=== PATIENT | male | born 1980 | race Caucasian/White ===

== ENCOUNTER 2024-01-16 06:55 | Day surgery (SDC) | payer OTHER, SELFPAY ==
--- NOTE | 2024-01-15 20:04 | HPE_ITS ---
Assessment and Plan Assessment and plan (1) Bleeding per rectum: Status: Acute Assessment and plan: Darryl and i reviewed the plan for an EGD and colonoscopy today. He had the oppurtunity to ask any new questions. Consents are up to date and we can proceed as planned. History of Present Illness History of Present Illness Chief Complaint: Bright red blood per rectum Narrative: He is 43 years old, he is referred here for colonoscopy because of bleeding per rectum. He thinks his symptoms for started about 2 years ago. He cannot recall any specific inciting factor. He tells me his had a longstanding of upper GI complaints, including a hiatal hernia and some gastritis. Bleeding 2 years ago stopped on its own without any particular intervention, and he had only 1 primary treatment in between. Most recently, in August of this year he began noticing blood on the toilet paper. This was occasionally associated with some bowel movements. He never has spontaneous bleeding on its own. He describes the color of the blood as on occasion bright red, but more often times maroon, or may be darker. He has never had any abdominal surgeries. Past medical history is most significant for gastroesophageal reflux disease or gastritis, which are treated with famotidine as well as omeprazole. He takes this every day. He denies any family history of colon or rectal cancers. He thinks his father may have had bladder and/or kidney cancer, and perhaps stomach cancer. PFSH All Active Problems Bleeding per rectum (Acute) Medical History Hiatal hernia GERD (gastroesophageal reflux disease) Psychophysiological insomnia Onychomycosis Panic attacks PTSD (post-traumatic stress disorder) Mood disorder Depression with anxiety Social History Smoking/Tobacco Use Status: Former Tobacco Use Smoking risk assessment performed?: Yes Alcohol Intake: former Substance use type: former substance user Housing: other Additional Social history: [facility] Meds Allergies and Home Medications Allergies Allergy/AdvReac Type Severity Reaction Status Date / Time ammonia Allergy Unknown Unknown Uncoded 01/16/24 07:02 eggplant Allergy Unknown unknown Uncoded 01/16/24 07:02 Home Medications ?Medication ?Instructions ?Recorded ?Confirmed ?Type acetaminophen 500 mg tablet 500 mg PO Q6H PRN 10/10/23 01/14/24 History buspirone 5 mg tablet 10 mg PO BID 10/10/23 01/14/24 History duloxetine 30 mg capsule,delayed 30 mg PO BID 10/10/23 01/14/24 History release famotidine 20 mg tablet 20 mg PO BID 10/10/23 01/14/24 History melatonin 3 mg tablet 3 mg PO HS PRN 10/10/23 01/14/24 History omeprazole 40 mg capsule,delayed 40 mg PO DAILY 10/10/23 01/14/24 History release quetiapine 50 mg tablet 50 mg PO DAILY 10/10/23 01/14/24 History diclofenac sodium 1 % topical gel 2 g topical BID 01/14/24 01/14/24 History ibuprofen 200 mg tablet (Advil) 600 mg PO Q8H PRN 01/14/24 01/14/24 History psyllium husk 0.4 gram capsule 0.4 g PO DAILY PRN 01/14/24 01/14/24 History (Daily Fiber) Exam Const General: cooperative, healthy appearing and not in acute distress Neck Neck: normal visual inspection, no lymphadenopathy and supple Resp Effort & Inspection: normal respiratory effort Auscultation: clear to auscultation bilaterally Cardio Jugular venous pressure: no JVD Rate: regular rate Rhythm: regular rhythm Heart Sounds: S1 normal and S2 normal GI Inspection: normal to inspection Palpation: soft, no guarding, no hernias and nontender Percussion: normal to percussion Auscultation: normal bowel sounds Neuro General: patient alert, patient awake and patient oriented x3 Psych Appearance: grossly normal
--- NOTE | 2024-01-15 20:07 | W.COLOREPORT ---
Date of service: 01/16/24 Time of Service: 09:34 Colonoscopy Report Date of procedure: 01/16/24 Pre-op diagnosis general: beeding per rectum Post-op diagnosis procedure note: other (Long segment Hickey's esophagus with grade 4 hiatal hernia; internal hemorrhoids) Procedure: EGD with biopsies and colonoscopy Surgeon: Juan José Sheikh Anesthesia Type: General:No Airway Estimated blood loss (mL): 10 Pathology: other (Random biopsies of gastric antrum and body, four-quadrant biopsies of esophagus at 33 cm and 36 cm from the incisors) Complications: None Disposition: same day Indications: Zan is a 43 year old man who has been experiencing bleeding per rectum. He also seems to have a family history of gastric cancer. He needs an EGD and colonoscopy Prep: Miralax/Dulcolax Procedure Start Time: 08:53 Procedure End Time: 09:20 Retraction Time: 20 Findings: Long segment Hickey's esophagus extending from 32 to 36 cm from the incisors; internal hemorrhoids Procedure Description: After the initiation of anesthesia, and with the assistance of a bite block, I advanced a standard gastroscope through the mouth past the hypopharynx and into the esophagus.? Under the direct vision of the scope, I advanced down the esophagus towards the stomach.? The upper and midesophagus were normal. There was Hickey's esophagus extending from 32 cm beyond the incisors to the GE junction at 36 cm beyond the incisors. Narrowband imaging was used to assist with analysis here. I advanced down into the stomach and insufflated into the rugae were obliterated. I performed retroflexion. There is a grade 4 hiatal hernia. Rest of the stomach appears normal, and advanced down around the incisura angularis past the pylorus into the duodenum. Duodenal mucosa was normal and healthy appearing. I saw no evidence of any inflammation here. I brought the camera back up into the stomach and perform some random biopsies of the gastric antrum and body. Next, I brought the camera back up to the GE junction. I perform four-quadrant biopsies at 36 cm, and 33 cm. All of these biopsies were performed with cold forceps, and there was minimal bleeding from the sites. I then brought the camera back out along the length the esophagus 1 last time. No other abnormalities appreciated. Next, we moved Darryl into the left lateral decubitus position, I began by performing an external anorectal exam.? Perineum and skin were normal, as was the anal verge.? There was no evidence of external hemorrhoids.? Next, I performed a digital rectal exam.? I did not appreciate any abnormal findings.? Next, I advanced a colonoscope into the rectal vault.? I performed retroflexion.? There are large internal hemorrhoids.? Using insufflation, I then advanced the colonoscope beyond the rectal folds and into the sigmoid colon before advancing towards the cecum.? The scope was noted to be in the cecum by identification of the ileocecal valve and appendiceal orifice.? I then began withdrawing the colonoscope using repeated irrigation as necessary for full evaluation of the colonic mucosa. ?Once the scope was withdrawn to the level of the rectum, great care was taken to examine portions of the rectal folds.? Finally, the scope was withdrawn and the patient was brought to the same-day surgery recovery unit as the anesthetic wore off. ?The findings and instructions were shared with the patient prior to discharge. [place] Bowel Prep [place] Bowel Prep Right Colon: 3 Left Colon: 3 Transverse Colon: 3 Total Score: 9
--- NOTE | 2024-01-15 20:09 | W.PM.DSUDISC ---
Date of service: 01/16/24 Time of Service: 09:30 Discharge Plan Disposition Patient Disposition: Home Condition: Good Discharge Details Reason For Visit: EGD and colonoscopy Attending Provider: Juan José Sheikh Primary Care Provider: Danae Yao Home Meds and New Rx's Prescriptions: Continued duloxetine 30 mg capsule,delayed release(DR/EC) 30 mg PO BID buspirone 5 mg tablet 10 mg PO BID famotidine 20 mg tablet 20 mg PO BID omeprazole 40 mg capsule,delayed release(DR/EC) 40 mg PO DAILY Rx Instructions: for 90 days quetiapine 50 mg tablet 50 mg PO DAILY Rx Instructions: for 90 days melatonin 3 mg tablet 3 mg PO HS PRN acetaminophen 500 mg tablet 500 mg PO Q6H PRN Rx Instructions: Take 2 tabs by mouth 3 times a day at least 4 hours apart, no more than 3000mg daily, for 90 days as needed diclofenac sodium 1 % gel 2 g topical BID Rx Instructions: apply to single elbow, wrist or hand; for hand includes palm/fingers/back of hand psyllium husk [Daily Fiber] 0.4 gram capsule 0.4 g PO DAILY PRN ibuprofen [Advil] 200 mg tablet 600 mg PO Q8H PRN Discharge Instructions Instructions: Hickey's esophagus, Hiatal hernia, Hemorrhoids Additional Instructions: Darryl, it was nice to see you today, and I hope you are comfortable during the procedure. With regards to your colonoscopy, you have some internal hemorrhoids. These are almost certainly the source of the bleeding. I have attached some general information here about hemorrhoids, but typically I recommend the patient's exhaust [id number] type treatments like Preparation H, and significant dietary modifications including addition of fiber supplements before any type of surgical intervention. With regards to your upper endoscopy, you have short segment Hickey's esophagus and a large hiatal hernia. Hickey's esophagus occurs when stomach acid irritates the bottom part of the esophagus from reflux, causing changes over time that could pose a risk factor for esophageal cancer. The hiatal hernia occurs when the top part of your stomach slips above your diaphragm, which is the breathing muscle that separates the chest from your abdomen. There is an operation to fix this, and I wonder if you would benefit from it. I would like you to follow-up in our office with Dr. Moreno, and see what his opinion is regarding surgical repair of your hiatal hernia. I will have our office make arrangements for that visit. 1. If tolerated, consume a soft, low fiber diet for 1-2 days. 2[address] Do not drive, drink alcohol, operate machinery, make critical decisions, or do activities that require coordination or balance for 24 hours. 3. Because air was put into your colon during the procedure, expelling air from your rectum (passing gas or farting) is normal. 4. You may not have a bowel movement for 1-3 days because of the colonoscopy prep. This is normal. 5. You may experience a sore throat for 24 to 48 hours. You may use throat lozenges or gargle with warm salt water to relieve the discomfort. 6. Because air was put into your stomach during the procedure, you may experience some belching. 7. Go directly to the emergency room if you notice any of the following: Develop chills (warm to touch), or if you have a thermometer and your temperature is above 101 Difficulty breathing or difficultly swallowing Persistent vomiting Severe abdominal pain, other than gas cramps Severe chest pain Black, tarry stools Any bleeding ? exceeding one tablespoon 8. Call your physician if the site where your intravenous was started becomes red, swollen, painful, and warm to touch. 9. Your physician has reviewed your pre-procedure medications. Please continue to take those medications as previously ordered. You will be given specific information/education regarding any changes to your medications before leaving. Stand Alone Forms: Anesthesia Discharge InstWilly Eldridge (DSU) Activity:: Activity as Tolerated Diet:: As Tolerated Discharge Orders Discharge Orders: Discharge Order (Routine); Ordered 01/15/24 Ordered By: Juan José Sheikh DS: Diagnosis Discharge Diagnosis (1) Bleeding per rectum: Status: Acute Asessment and Plan: Internal hemorrhoids Incidental grade 4 hiatal hernia on EGD: Follow-up with Dr. Moreno in our office
[2024-01-16 07:17] VITALS: BP 119/83; PULSE 89; RESP 18; TEMP 36.2; O2SAT 99
[2024-01-16] MEDS: Lactated Ringers 1,000 ML 80 ML IV (07:28)
--- NOTE | 2024-01-16 08:22 | W.ANESPRE ---
General Info Date of Service Date Performed: 01/16/24 Height: 5 ft 11 in Weight: 109.6 kg Body Mass Index (BMI): 33.7 Surgical Procedure: Operation Date: 01/16/24 08:20 Proposed Procedure Side Surgeon p Colonoscopy/Gastroscopy Juan José Sheikh MD Meds Allergies and Home Medications Allergies Allergy/AdvReac Type Severity Reaction Status Date / Time ammonia Allergy Unknown Unknown Uncoded 01/16/24 07:02 eggplant Allergy Unknown unknown Uncoded 01/16/24 07:02 Home Medication ?Medication ?Instructions ?Recorded acetaminophen 500 mg tablet 500 mg PO Q6H PRN 10/10/23 buspirone 5 mg tablet 10 mg PO BID 10/10/23 duloxetine 30 mg capsule,delayed 30 mg PO BID 10/10/23 release famotidine 20 mg tablet 20 mg PO BID 10/10/23 melatonin 3 mg tablet 3 mg PO HS PRN 10/10/23 omeprazole 40 mg capsule,delayed 40 mg PO DAILY 10/10/23 release quetiapine 50 mg tablet 50 mg PO DAILY 10/10/23 diclofenac sodium 1 % topical gel 2 g topical BID 01/14/24 ibuprofen 200 mg tablet (Advil) 600 mg PO Q8H PRN 01/14/24 psyllium husk 0.4 gram capsule 0.4 g PO DAILY PRN 01/14/24 (Daily Fiber) Current Visit Medications: Current Medications Generic Name Dose Route Start Last Admin Trade Name Freq PRN Reason Stop Dose Admin Ringer's Solution 1,000 mls @ 80 mls/hr 01/16/24 06:00 01/16/24 07:28 IV 02/14/24 23:59 80 mls/hr INFUSION SUDHIR Administration IV Miscellaneous Supplies 1 each 01/16/24 06:00 Iv Access IV 02/14/24 23:59 DIRECTED SUDHIR Ondansetron HCl 4 mg 01/15/24 20:10 Ondansetron 4 Mg/2 Ml Vial IVP 02/14/24 20:09 Q4H PRN PRN Nausea / Vomiting Sodium Chloride 0 ml 01/16/24 06:00 Normal Saline Flush 10 Ml Syr IV 02/14/24 23:59 PRN PRN Sodium Chloride 0 ml 01/16/24 06:00 Normal Saline 10 Ml Vial IJ 02/14/24 23:59 DIRECTED PRN Sterile Water 0 ml 01/16/24 06:00 Water,Injection,Sterile 10 Ml Vial IJ 02/14/24 23:59 DIRECTED PRN PFSH Active Problems Active Problems: Problem Status Onset Code Bleeding per rectum Acute K62.5 Medical History Medical History Hiatal hernia GERD (gastroesophageal reflux disease) Psychophysiological insomnia Onychomycosis Panic attacks PTSD (post-traumatic stress disorder) Mood disorder Depression with anxiety Tobacco Smoking/Tobacco Use Status: Former Tobacco Use Alcohol Alcohol Intake: former Substance Use Substance use type: former substance user Vital Signs and Lab Results Vital Signs Most Recent Vital Signs in EMR: Most Recent Vital Signs Temp Pulse Resp BP Pulse Ox 36.2 C L 89 18 119/83 99 01/16/24 07:17 01/16/24 07:17 01/16/24 07:17 01/16/24 07:17 01/16/24 07:17 Lab Results Blood Type / Crossmatch: No Data to Display Complete Blood Count: No Data to Display Complete Metabolic Panel: No Data to Display Liver Function Panel: No Data to Display Coagulation Panel: No Data to Display Cardiac Panel: No Data to Display Arterial Blood Gas: No Data to Display Venous Blood Gas: No Data to Display Pancreas Panel: No Data to Display Thyroid Panel: No Data to Display Infectious Disease: No Data to Display Blood Cultures: No Data to Display Toxicology Panel: No Data to Display Anesthesia Assessment and Plan Anesthesia History Personal History: No History of Anesthesia Complications Family History: Family History Unknown Exercise Tolerance Exercise Tolerance: Metabolic Equivalents>4 Pertinent Negatives Pertinent Negatives: No Symptoms of GERD Cardiac & Pulmonary Exam Cardiac Exam: Normal S1/S2 Heart Sounds Pulmonary Exam: Clear Bilateral Breath Sounds Implantable Cardiac Device Does patient have a Pacemaker or an ICD?: No Airway Exam Known Difficult Airway: No Mallampati Class: 3 Mouth Opening: Normal (> 3cm) Thyromental Distance: Greater than 3 cm Neck Range of Motion: Full ROM Neck Circumference: Normal Teeth Condition: Normal Dentition ASA Classification ASA Score: ASA 2 Emergency Case?: No NPO Status NPO Status: NPO Clears >2 hours, Solids >8 hours Anesthesia Plan Resuscitation Status: Full Code Anesthesia Technique: General Anesthesia Airway Planned: Natural Airway Monitors Used: Standard Monitors
[2024-01-16 08:23] VITALS: BMI 33.7
--- NOTE | 2024-01-16 08:55 | STOM_PTH ---
PATIENT: Zan Bunn LOC: [facility] U#:[id number] AGE/SX: 43/M ROOM: RE01/16/[address]: Juan José Sheikh MD : 1980 BED: DIS: 01/16/2024 SPEC #: [id number] RECD: 01/16/24 13:12 STATUS: MAGDA RE #: [id number] KALI: 01/16/24 08:[address]: Juan José Sheikh DEPT: Surgical Specimen RECD BY: Meredith Anderson ENTERED: 01/16/24 13:14 SP TYPE: STOMACH OTHR DR: Danae Yao Tissues: 1 - STOMACH BIOPSY 2 - STOMACH BIOPSY 3 - ESOPHAGUS BIOPSY 4 - ESOPHAGUS BIOPSY Procedures: GROSS AND MICRO LEVEL 4 Comments: [id number]
[2024-01-16 09:25] VITALS: BP 118/90; PULSE 88; RESP 18; TEMP 36.2; O2SAT 95
--- NOTE | 2024-01-16 09:28 | W.ANESPOSTOP ---
Postoperative Evaluation Date, Time and Location Date Performed: 01/16/24 Time Performed: :28 Patient Location: Day Surgery Unit Vital Signs Most Recent Imported Vital Signs: Most Recent Vital Signs Temp Pulse Resp BP Pulse Ox 36.2 C L 89 18 119/83 99 01/16/24 07:17 01/16/24 07:17 01/16/24 07:17 01/16/24 07:17 01/16/24 07:17 Pain Score Most Recent Pain Score: Most Recent Pain Score Pain Level 0 01/16/24 07:17 Assessment Mental Status: Awake (Alert & Oriented to Patient Baseline) Airway and Respiratory Function: Patent airway with normal (patient baseline) respiratory exam Cardiovascular Function: Hemodynamically Stable Hydration Status: Adequately Hydrated Nausea & Vomiting: No Nausea or Vomiting Pain: Pt. Denies Any Pain Peripheral Nerve Block: Patient did not receive a nerve block
[2024-01-16 09:57] VITALS: BP 133/97; PULSE 74; RESP 18; TEMP 36.3; O2SAT 99
== END 2024-01-16 10:25 | disposition home or self-care (01) ==
PROVIDERS: PCP Nurse Practitioner Adult Health; Visit Provider Surgery
PROC: (CPT 45378; principal; 2024-01-16 08:15)
DX: K62.5 Hemorrhage of anus and rectum (principal); K64.8 Other hemorrhoids; K22.70 Barrett's esophagus without dysplasia; K44.9 Diaphragmatic hernia without obstruction or gangrene
CPT/HCPCS: 45378; 43239; 88305; J2001; J2704